=== PATIENT | female | born 1945 | race Caucasian/White ===

== ENCOUNTER 2016-07-19 16:18 | Emergency (ER) | payer MEDICARE ==
[2016-07-19 17:44] LABS: ABSOLUTE NEUTROPHIL COUNT 6.3 K/mm3 (1.8-7.7); BASO % 0.3 % (0.2-1.0); EOS # 0.1 (0.0-0.5); EOS % 0.9 % (0.9-2.9); HEMATOCRIT 25.6 % (37.0-47.0); HEMOGLOBIN 8.6 gm/l (12.0-16.0); IMM NEUT # 0.1 K/mm3 (0-0.2); IMM NEUT% 1.4 % (0-1); LYMPH % 21.5 % (15-45); MEAN CELL VOLUME 91.1 fl (81.0-99.0); MEAN CORPUSCULAR HEMOGLOBIN 30.6 pg (27.0-31.0); MEAN CORPUSCULAR HGB CONC 33.6 g/dl (33.0-37.0); MEAN PLATELET VOLUME 9.1 fl (7.4-10.4); MONO # 0.8 (0.0-0.8); MONO % 8.5 % (4-12); NEUT % 67.4 % (43-75); PLATELET COUNT 472 K/mm3 (130-400); RED CELL DISTRIBUTION WIDTH 13.5 % (11.5-14.5)
[2016-07-19] MEDS ORDERED: HYDROMORPHONE HCL 1 MG/ML SYRINGE ONE (17:47)
[2016-07-19] MEDS ORDERED: SODIUM CHLORIDE 0.9% 2,000 ML ONE (17:47)
[2016-07-19] MEDS ORDERED: ONDANSETRON 4 MG/2ML 2 ML VIAL ONE (17:47)
[2016-07-19 17:48] LABS: URINE BILIRUBIN NEGATIVE (NEGATIVE); URINE BLOOD NEGATIVE (NEGATIVE); URINE GLUCOSE (UA) NEGATIVE (NEGATIVE); URINE LEUKOCYTE ESTERASE NEGATIVE (NEGATIVE); URINE NITRITE NEGATIVE (NEGATIVE); URINE PROTEIN TRACE (NEGATIVE); URINE UROBILINOGEN NORMAL (0-1 mg/dl)
[2016-07-19 17:49] LABS: URINE APPEARANCE HAZY; URINE COLOR AMBER
[2016-07-19 18:01] LABS: INR 0.96; PROTHROMBIN TIME 10.1 SECONDS (9.3-11.4)
[2016-07-19 18:03] LABS: ALB/GLOB RATIO 1.1 (>1.0); ALBUMIN 3.2 gm/dL (3.5-5.7); CALCIUM 8.6 mg/dL (8.6-10.3); MAGNESIUM 2.6 mg/dL (1.9-2.7)
--- NOTE | 2016-07-19 18:59 | CT ---
Exam: CT abdomen and pelvis without contrast COMPARISON: Lumbar spine CT 05/22/2016 INDICATION: Low abdominal pain. Patient states she had surgery on 07/10/2016 now shows low blood pressure and right lower abdominal pain. TECHNIQUE: CT examination of the abdomen and pelvis was obtained without contrast using a renal stone protocol. FINDINGS: Patient has undergone extensive spine surgery including fusion, extending from T10 into the sacrum, with hardware traversing the sacroiliac joints. Some gas and fluid is noted within the operative bed, not necessarily unexpected in this timeframe following surgery. Minor foci of subcutaneous gas are seen within the right side of the abdomen and pelvis, presumably related to the recent surgery. Anasarca is noted without well-defined fluid collection. There is fluid rather than well formed stool throughout the colon, and significant amount of fluid is seen throughout the small bowel. Correlate for diarrhea. There is no bowel obstruction, free air or free intraperitoneal fluid. The urinary bladder is decompressed by a Borges catheter. Uterus is present. No obvious adnexal mass. The liver, spleen, kidneys, generally limits and gallbladder are within normal limits on this noncontrast exam. There is mild global pancreatic atrophy. Limited evaluation lung bases demonstrates asymmetric airspace disease within the left lower lobe. There is a somewhat nodular component centrally measuring up to 1.9 cm. 5 mm nodule is seen within the lingula. Unfortunately these findings are of uncertain chronicity given lack of similar comparisons. There is no pleural effusion. IMPRESSION: 1. There is fluid rather than well formed stool throughout the colon, as well as fluid-filled loops of small bowel. Correlate for diarrhea. There is no bowel obstruction. 2. Asymmetric and somewhat linear airspace disease within the left lower lobe, more than expected for atelectasis, correlate for signs and symptoms of pneumonia. Given that it is somewhat nodular in appearance, particularly centrally, pulmonary nodule with postobstructive atelectasis is also considered in the differential diagnosis. 3. 5 mm nodule within the lingula which is of uncertain chronicity and lack of comparisons. Recommend correlation with outside films to evaluate for stability versus CT examination of the chest for further evaluation; this could evaluate for other nodules which will determine appropriate follow-up interval, as well as for follow-up of this left basilar abnormality. 4. Extensive postsurgical changes of the spine. Some gas and fluid is noted within the operative bed which is not necessarily unexpected given the timeframe of the surgery. Findings were discussed with Dr. Pozo at 1853 hours 07/19/2016.
[2016-07-19] MEDS ORDERED: CEFTRIAXONE 1 GRAM DUPLEX 50 ML IV ONE (19:35)
== END 2016-07-19 21:57 | disposition home or self-care (01) ==
LOC: ED 16:18
DX: I95.9 Hypotension, unspecified (principal); J18.9 Pneumonia, unspecified organism; R33.9 Retention of urine, unspecified; N17.9 Acute kidney failure, unspecified; E86.0 Dehydration; E87.1 Hypo-osmolality and hyponatremia; K52.9 Noninfective gastroenteritis and colitis, unspecified
CPT/HCPCS: 83605; 83690; 85025; 87040; 80053; 83735; 85610; 81003; 36415 ×2; 74176; 96375 ×2; 99284 ×2; 51702; 96361 ×3; 96365; J1170; J2405; J7030; J0696

== ENCOUNTER 2016-08-06 10:05 | Emergency (ER) | payer MEDICARE ==
[2016-08-06 10:57] LABS: ABSOLUTE NEUTROPHIL COUNT 4.7 K/mm3 (1.8-7.7); BASO # 0.1 K/mm3 (0.0-0.2); BASO % 0.6 % (0.2-1.0); EOS # 0.1 (0.0-0.5); EOS % 1.3 % (0.9-2.9); HEMATOCRIT 28.7 % (37.0-47.0); IMM NEUT # 0.1 K/mm3 (0-0.2); IMM NEUT% 0.8 % (0-1); LYMPH # 2.4 (1.0-4.8); LYMPH % 30.8 % (15-45); MEAN CELL VOLUME 90.5 fl (81.0-99.0); MEAN CORPUSCULAR HEMOGLOBIN 28.4 pg (27.0-31.0); MEAN CORPUSCULAR HGB CONC 31.4 g/dl (33.0-37.0); MEAN PLATELET VOLUME 8.4 fl (7.4-10.4); MONO # 0.4 (0.0-0.8); MONO % 5.5 % (4-12); PLATELET COUNT 665 K/mm3 (130-400); RED CELL DISTRIBUTION WIDTH 14.5 % (11.5-14.5)
[2016-08-06 11:10] LABS: ALB/GLOB RATIO 1.1 (>1.0); ALBUMIN 3.5 gm/dL (3.5-5.7); CALCIUM 8.6 mg/dL (8.6-10.3)
[2016-08-06] MEDS ORDERED: ONDANSETRON 4 MG/2ML 2 ML VIAL ONE (11:26)
[2016-08-06] MEDS ORDERED: MORPHINE SULFATE 4 MG/ML SYRINGE ONE (11:26)
[2016-08-06] MEDS ORDERED: PANTOPRAZOLE SODIUM 40 MG VIAL IV ONE (11:26)
[2016-08-06] MEDS ORDERED: SODIUM CHLORIDE 0.9% 1,000 ML ONE (11:26)
--- NOTE | 2016-08-06 12:04 | US ---
ABDOMINAL-LIMITED COMPARISON: CT abdomen and pelvis 07/19/2016 HISTORY: Right upper quadrant pain. FINDINGS: Gall bladder: Normal length 8.6 cm wall thickness 1.2 mm. No stones or sludge. Negative Saldaña sign. Common hepatic duct: 3.8 mm. Common bile duct: 5.6 mm. IMPRESSION: 1. Normal study. No gallstones. Report was sent to the emergency department electronic medical record system 08/06/2016 at 12:06.
[2016-08-06 12:22] LABS: SPECIFIC GRAVITY 1.015 (1.001-1.030); URINE BILIRUBIN NEGATIVE (NEGATIVE); URINE BLOOD NEGATIVE (NEGATIVE); URINE GLUCOSE (UA) NEGATIVE (NEGATIVE); URINE LEUKOCYTE ESTERASE NEGATIVE (NEGATIVE); URINE NITRITE NEGATIVE (NEGATIVE); URINE PROTEIN NEGATIVE (NEGATIVE); URINE UROBILINOGEN NORMAL (0-1 mg/dl)
[2016-08-06 12:27] LABS: URINE APPEARANCE CLEAR; URINE COLOR YELLOW
== END 2016-08-06 13:26 | disposition home or self-care (01) ==
LOC: ED 10:05
DX: R10.9 Unspecified abdominal pain (principal); R19.7 Diarrhea, unspecified; R10.11 Right upper quadrant pain; R11.2 Nausea with vomiting, unspecified
CPT/HCPCS: 83690; 85025; 80053; 81003; 84484; 76705; 96375 ×2; 99284 ×2; 96374; 96361 ×2; 51701; J2270; C9113; J2405; J7030